=== PATIENT | female | born 2000 | race Caucasian/White ===

== ENCOUNTER 2025-01-15 18:27 | Emergency (ER) | payer MEDICAID ==
[~2025-01-15] VITALS: Ht 160 cm; Wt 49.1 kg
[2025-01-15 19:24] LABS: MEAN PLATELET VOLUME 8.8 FL (7.4-10.4); RED CELL DISTRIBUTION WIDTH 12.9 % (11.5-14.5)
[2025-01-15 19:41] LABS: CREATININE 0.92 MG/DL (0.40-0.90); TOTAL CARBON DIOXIDE 20.0 MMOL/L (24-32); eCRCL 74 ML/MIN; eGFR 76 ML/MIN
--- NOTE | 2025-01-15 21:27 | Physician Documentation ---
History of Present Illness ~ Chief Complaint: Vomiting Stated Complaint: VOMITING Time Seen by MD: 21:26 Mode of Arrival: POV HPI Patient presents to the emergency room for evaluation of nausea vomiting and diarrhea. Onset of symptoms this morning. No sick contacts. No unusual foods. Last Menstrual Period: Dec 28, 2024 Medication Reconciliation Allergies: Coded Allergies: ampicillin (Unverified Allergy, Unknown, 01/15/25) Past Medical History Last Menstrual Period: Dec 28, 2024 Physical Exam Vital Signs: Temperature: 97.9, Heart Rate: 62, Respiratory Rate: 16, BP: 97/67, Pulse Oximetry: 99, Weight: 49.100 Oxygen Flow Rate: 0 Physical Exam General: Patient is awake, alert, oriented x4 in no acute distress and well appearing.~ Head: Normocephalic and atraumatic. Eyes: Conjunctival normal. EOMI. PERRL. ENT: Mucous membranes moist. Neck: Supple, trachea is midline. Chest: Clear to auscultation bilaterally without rales, rhonchi, or wheezes. There is no accessory muscle use or retractions. Cardiac: RRR without murmurs, gallops, or rubs. Abd: Soft, nondistended, nontender, with normoactive bowel sounds. No guarding, rebound, or rigidity. Progress Results/Orders Results/Orders Orders - TRENTON OVIEDO MD Urinalysis, Cult If Indicated (01/15/25 18:35) Hcg, Ur Ql (01/15/25 18:35) Completed Orders - TRENTON OVIEDO MD Cbc/Diff (01/15/25 18:35) BMP (01/15/25 18:35) Lipase (01/15/25 18:35) CMP (01/15/25 18:35) Procalcitonin (01/15/25 21:27) Normal Saline 1000ml (0.9% Sodium Chlori (01/15/25 21:30) Ondansetron Inj. (Zofran 4mg/2ml Vial) (01/15/25 21:30) Hcg Serum Ql (01/15/25 21:33) Medications Received in ER Medications (Trade) Dose Ordered Sig/Macario Route PRN Reason Start Time Stop Time Status Last Admin Dose Admin Sodium Chloride 1,000 ml @ 1,000 mls/hr ONCE ONCE IV 01/15/25 21:30 01/15/25 22:29 DC 01/15/25 22:33 1,000 MLS/HR (Zofran 4mg/2ml vial) 8 mg ONCE ONCE IV 01/15/25 21:30 01/15/25 21:31 DC 01/15/25 21:34 8 MG Vital Signs 01/15/25 01/15/25 01/15/25 01/15/25 18:32 20:50 20:54 22:11 Temp 97.9 Pulse 72 62 63 Resp 30 16 15 B/P (MAP) 105/64 97/67 (77) 104/56 (72) Pulse Ox 98 99 97 O2 Flow Rate 0 Laboratory Tests Test 01/15/25 18:49 01/15/25 21:39 White Blood Count 20.7 H Red Blood Count 4.63 Hemoglobin 15.4 Hematocrit 44.1 Mean Corpuscular Volume 95.2 Mean Corpuscular Hemoglobin 33.2 H Mean Corpuscular Hemoglobin Concent 34.9 Red Cell Distribution Width 12.9 Platelet Count 242 Mean Platelet Volume 8.8 Neutrophils (%) (Auto) 91.4 H Lymphocytes (%) (Auto) 3.3 L Monocytes (%) (Auto) 5.3 Eosinophils (%) (Auto) 0 Basophils (%) (Auto) 0 Neutrophils # (Auto) 18.9 H Lymphocytes # (Auto) 0.7 L Monocytes # (Auto) 1.1 H Eosinophils # (Auto) 0.0 Basophils # (Auto) 0.0 CBC Comment Sodium Level 139 Potassium Level 3.6 Chloride Level 104 Carbon Dioxide Level 20.0 L Anion Gap 15 Blood Urea Nitrogen 8 Creatinine 0.92 H Estimated GFR/1.73 m2 76 BUN/Creatinine Ratio 8.7 L Glucose Level 154 H Calcium Level 9.6 Total Bilirubin 1.7 H Aspartate Amino Transf (AST/SGOT) 22 Alanine Aminotransferase (ALT/SGPT) 24 Alkaline Phosphatase 48 Total Protein 7.9 Albumin 4.9 Globulin 3.0 Albumin/Globulin Ratio 1.6 H Lipase 21 Procalcitonin < 0.05 Chemistry Comments Human Chorionic Gonadotropin, Qual Negative Medical Decision Making Findings Patient presented to the emergency room with vomiting and diarrhea as per HPI. Differentials include but are not limited to hyperemesis, gastroenteritis, food poisoning, dehydration therefore emergent labs ordered. Labs reassuring. Patient is responding to treatment and he had not feel patient requires CT scan at this time. Departure Disposition: HOME / SELF CARE / HOMELESS Impression: Primary Impression: Acute gastroenteritis Condition: Improved Discharge Instructions: Viral Gastroenteritis, Adult Departure Forms: Excuse form Work or School Excused From: Work Excuse beginning now through the following date: Jan 16, 2025 May Return but still avoid physical Activity from now until: Jan 17, 2025 May Return to full physical activity as of: Jan 17, 2025 Referrals: NO PRIMARY CARE PROVIDER (PCP) Prescriptions Loperamide Hcl (Loperamide) 2 Mg Capsule 2 CAP PO Q6H for loose stool for 5 Days, #40 CAP 0 Refills Prov: TRENTON OVIEDO MD 01/15/25 Ondansetron 8mg ODT (Ondansetron Odt) 8 Mg Tab.rapdis 1 TAB PO Q6H for nausea/vomiting for 3 Days, #12 TAB 0 Refills Prov: TRENTON OVIEDO MD 01/15/25 Education Educated: Patient Educated regarding: diagnosis, treatment, need for follow up Signature Scribe Signature: No scribe Attestation: The note accurately reflects work and decisions made by me.Trenton Oviedo MD 01/15/25 23:18 TRENTON OVIEDO MD Jan 15, 2025 21:27
[2025-01-15] MEDS: ondansetron/PF 4mg/2ml inj IV ONE (21:34)
[2025-01-15 22:16] LABS: HCG SERUM QL NEGATIVE
[2025-01-15] MEDS: normal saline 1000ml 1,000 ML IV ONE (22:33)
[2025-01-15] MEDS ORDERED: LOPE2CAP PO (23:11)
[2025-01-15] MEDS ORDERED: ONDA-245 PO (23:11)
[2025-01-15 23:26] VITALS: BP 101/72; PULSE 70; RESP 16; TEMP 98.1; O2SAT 99
== END 2025-01-15 23:28 | disposition home or self-care (01) ==
LOC: ER 18:28
DX: K52.9 Noninfective gastroenteritis and colitis, unspecified (principal); Z88.1 Allergy status to other antibiotic agents
CPT/HCPCS: 36415; 80053; 83690; 84145; 84703; 85025; 96361; 96374; 99285; J2405; J7030; 81003; 81025